=== PATIENT | female | born 1980 | race Caucasian/White ===

== ENCOUNTER 2022-03-18 04:16 | Day surgery (SDC) | payer BC ==
[2022-03-15 09:32] VITALS: BMI 21.7
[2022-03-18] MEDS ORDERED: FENTANYL CITRATE/PF 50 MCG/ML VIAL ONE (11:46)
[2022-03-18] MEDS ORDERED: MIDAZOLAM HCL 2 MG/2 ML SINGLE DOSE VIAL ONE (11:46)
[2022-03-18] MEDS ORDERED: BUPIVACAINE HCL/PF 0.5% (5MG/ML) 10 ML VIAL ONE (12:35)
[2022-03-18] MEDS ORDERED: ONDANSETRON 4 MG/2 ML VIAL ONE ×2 (12:47→17:44)
[2022-03-18] MEDS ORDERED: LIDOCAINE HCL/PF 2% SDV 5ML VIAL ONE (12:47)
[2022-03-18] MEDS ORDERED: PROPOFOL 20 ML ONE (12:47)
[2022-03-18] MEDS ORDERED: DEXAMETHASONE SOD PHOSPHATE 4 MG/1 ML VIAL ONE (12:47)
[2022-03-18] MEDS ORDERED: ceFAZolin SODIUM 1 GM VIAL IVPB ONE (12:50)
[2022-03-18] MEDS ORDERED: KETAMINE HCL 500 MG/10 ML VIAL ONE (12:55)
[2022-03-18] MEDS ORDERED: HYDROmorphone HCl 2 MG/ML VIAL ONE (12:56)
[2022-03-18] MEDS ORDERED: GLYCOPYRROLATE 0.2 MG/1 ML VIAL ONE (13:49)
[2022-03-18] MEDS ORDERED: NEOSTIGMINE METHYLSULFATE 0.5 MG/ML - 10 ML MDV ONE (13:49)
[2022-03-18] MEDS ORDERED: BUPIVACAINE HCL/PF 0.5% (5 MG/ML) 30 ML VIAL IJ ONE (14:00)
[2022-03-18] MEDS ORDERED: ACETAMINOPHEN 1000 MG/100 ML BAG IVPB PRN (14:21)
[2022-03-18] MEDS ORDERED: ONDANSETRON 4 MG/2 ML VIAL IVPUSH PRN (14:21)
[2022-03-18] MEDS ORDERED: LACTATED RINGERS SOLUTION 1,000 ML IV SCH (14:30)
[2022-03-18 16:30] VITALS: RESP 18
[2022-03-18 16:35] VITALS: PULSE 73; TEMP 97.7
[2022-03-18] MEDS ORDERED: ONDANSETRON 4 MG/2 ML VIAL IVPB ONE (17:45)
[2022-03-18 18:25] VITALS: BP 108/61
== END 2022-03-18 18:30 | disposition home or self-care (01) ==
LOC: JASU-SURG 04:16
PROVIDERS: ATTEND Obstetrics & Gynecology
PROC: 0UT04ZZ Resection of Right Ovary, Percutaneous Endoscopic Approach (ICD-10-PCS; principal; 2022-03-18 10:00)
DX: D27.0 Benign neoplasm of right ovary (principal)
CPT/HCPCS: 76000-TC-FY; 81025; 88108; 88305-TC; 88307-TC; 94760

== ENCOUNTER 2022-10-07 11:23 | Emergency (ER) | payer BC, OTHER ==
[2022-10-07 11:35] VITALS: BP 134/68; PULSE 68; RESP 18; TEMP 98.4; BMI 21.7
[2022-10-07] MEDS ORDERED: IBUPROFEN 600 MG TABLET (FP) PO ONE ×2 (12:19→12:32)
[2022-10-07] MEDS ORDERED: IBUPROFEN 400 MG TABLET (FP) PO ONE (12:30)
== END 2022-10-07 13:33 | disposition home or self-care (01) ==
LOC: JERFT 11:23
DX: R07.0 Pain in throat (principal); J02.0 Streptococcal pharyngitis
CPT/HCPCS: 87651; 99283-25